=== PATIENT | female | born 1990 | race Caucasian/White ===

== ENCOUNTER → 2016-09-25 | Outpatient (CLI) | payer OTHER ==
--- NOTE | 2016-09-25 17:50 | XR ---
EXAMINATION TYPE: XR knee limited LT DATE OF EXAM: 09/25/2016 COMPARISON: NONE HISTORY: Pain TECHNIQUE: 2 views FINDINGS: I see no fracture nor dislocation. Joint spaces are normal. There is no sign of joint effus ion. IMPRESSION: Normal left knee
== END ==
LOC: RADXRMAIN 17:25
PROVIDERS: ATTEND Nurse Practitioner
DX: M25.562 Pain in left knee (principal)

== ENCOUNTER 2017-10-10 09:42 | Emergency (ER) | payer OTHER, BC ==
[2017-10-10 09:49] VITALS: TEMP 98.5
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
[2017-10-10 11:40] VITALS: BP 111/73; PULSE 65; RESP 16
== END 2017-10-10 11:55 | disposition home or self-care (01) ==
LOC: EC 09:42
DX: S06.0X9A Concussion with loss of consciousness of unspecified duration, initial encounter (principal); S80.02XA Contusion of left knee, initial encounter; S80.01XA Contusion of right knee, initial encounter; H57.12 Ocular pain, left eye; Z79.3 Long term (current) use of hormonal contraceptives; Z79.899 Other long term (current) drug therapy; V43.52XA Car driver injured in collision with other type car in traffic accident, initial encounter; Y92.410 Unspecified street and highway as the place of occurrence of the external cause; Z88.1 Allergy status to other antibiotic agents
CPT/HCPCS: 70450; 70480; 72125; 99284

== ENCOUNTER → 2018-01-05 | Outpatient (CLI) | payer BC ==
--- NOTE | 2018-01-05 11:42 | MR ---
PRE AND POSTCONTRAST ENHANCED MRI OF THE BRAIN: CLINICAL HISTORY: R47.01 Aphasia / R51 Headache CONTRAST: 7.5ml gadavist Multiplanar and multispin-echo imaging of the brain was performed both before and after the administr ation of contrast. The ventricles, basal cisterns and sulci overlying the cerebral convexities are within normal limits. There is no evidence for midline shift or mass effect. Acute intracranial hemorrhage or extra-axial collection is not evident. Nonspecific focal area of increased signal within the deep white matter posterior right shelley radiat a measures 5.4 mm. There are several additional sub-2 mm foci of increased signal within the right ce rebral hemisphere as well as similar tiny nonspecific foci within the left cerebral hemisphere total ing approximately 2 in number. Differential diagnostic possibilities include sequela of chronic migra ine headaches, vasculitis, demyelinating disease and sequela of Lyme's disease to name a few. Following contrast administration, there is no evidence for pathologic enhancement or enhancing mass. The paranasal sinuses and mastoid air cells are well-aerated. IMPRESSION: 1. Nonspecific tiny foci of increased signal with differential diagnostic possibilities given above.
== END ==
LOC: RADMRIMAIN 10:37
PROVIDERS: ATTEND Physical Medicine & Rehabilitation
DX: R51 Headache (principal); R47.01 Aphasia
CPT/HCPCS: 70553; A9585

== ENCOUNTER → 2018-03-01 | Outpatient (CLI) | payer BC, OTHER ==
[2018-03-01 17:01] LABS: Prothrombin Time 10.5 sec (9.0-12.0)
[2018-03-02 03:47] LABS: Cardiolipin Ab IgG Interp NEGATIVE (NEGATIVE); Cardiolipin Ab IgM Interp NEGATIVE (NEGATIVE); Cardiolipin IgA Antibody <0.5 U/mL; Cardiolipin IgM Antibody <0.2 U/mL
[2018-03-04 10:13] LABS: Anti-Thrombin III Antigen 104 % (80 - 120)
[2018-03-04 10:14] LABS: Protein S Antigen 75 % (50 - 140)
[2018-03-04 14:25] LABS: APTT 39 Sec(s) (<43); Dilute Russell Viper Venom 38 Sec(s) (<44)
[2018-03-06 10:10] LABS: Anti-Thrombin III Activity 112 % (79-109); Protein C (Activity) 83 % (71-138)
[2018-03-06 10:53] LABS: Act Protein C Resist Interp NEG; Activated Protein C Resistance 4.87 (1.60-4.90)
== END ==
LOC: LABWHC1 16:22
PROVIDERS: ATTEND Physical Medicine & Rehabilitation
DX: I35.9 Nonrheumatic aortic valve disorder, unspecified (principal); R47.01 Aphasia; R93.1 Abnormal findings on diagnostic imaging of heart and coronary circulation; R51 Headache
CPT/HCPCS: 36415; 81241; 83090; 85210; 85300; 85301; 85303; 85305; 85307; 85610; 85613; 85730; 86147

== ENCOUNTER 2018-08-17 17:15 | Emergency (ER) | payer OTHER ==
[2018-08-17 17:26] VITALS: BP 110/78; PULSE 74; RESP 16; TEMP 99.2
--- NOTE | 2018-08-17 18:17 | ED ---
Female Urogenital HPI - General Chief complaint: Vaginal Bleeding Stated complaint: Cramping-7 wks Time Seen by Provider: 08/17/18 17:35 Source: patient Mode of arrival: ambulatory Limitations: no limitations - History of Present Illness Initial comments: The 7-year-old female presenting today for chief complaint of vaginal bleeding pinky. Patient states she is 7 weeks . She states that yesterday she had lower abdominal cramping midline. She states it felt similar to period cramps. Patient states that today she had heavy vaginal bleeding similar to that of the period. Patient was concerned about miscarriage of present to the emergency department for evaluation. Patient denies any other associated symptoms. She states she is feeling well. Remaining ROS negative, Patient denies any recent fever, chills, shortness of breath, chest pain, back pain, abdominal pain, nausea or vomiting, numbness or tingling, dysuria or hematuria, constipation or diarrhea, headaches or visual changes, or any other complaints. - Related Data Home Medications Medication Instructions Recorded Confirmed Cyanocobalamin (Vitamin B-12) 1,000 mcg PO DAILY 10/10/17 10/10/17 [Vitamin B-12] Lysine [l-Lysine] 500 mg PO DAILY 10/10/17 10/10/17 Multivitamins, Thera [Multivitamin 1 tab PO DAILY 10/10/17 10/10/17 (formulary)] Norethindrone [Brittany] 0.35 mg PO DAILY 10/10/17 10/10/17 Previous Rx's Medication Instructions Recorded Ibuprofen [Motrin] 600 mg PO Q6HR PRN #20 day 10/10/17 Allergies Allergy/AdvReac Type Severity Reaction Status Date / Time sulfamethoxazole Allergy Unknown Verified 08/17/18 17:26 [From Bactrim] trimethoprim [From Bactrim] Allergy Unknown Verified 08/17/18 17:26 Review of Systems ROS Statement: Those systems with pertinent positive or pertinent negative responses have been documented in the HPI. ROS Other: All systems not noted in ROS Statement are negative. Past Medical History Additional Past Medical History / Comment(s): aortic stenosis, mitral and bicuspid valve prolapse History of Any Multi-Drug Resistant Organisms: None Reported Past Surgical History: No Surgical Hx Reported Past Psychological History: No Psychological Hx Reported Smoking Status: Never smoker Past Alcohol Use History: None Reported Past Drug Use History: None Reported General Exam - General Exam Comments Initial Comments: General: The patient is awake and alert, in no distress, and does not appear acutely ill. Eye: +3 mm pupils are equal, round and reactive to light, extra-ocular movements are intact. No nystagmus. There is normal conjunctiva bilaterally. No signs of icterus. Ears, nose, mouth and throat: There are moist mucous membranes and no oral lesions. Neck: The neck is supple, there is no tenderness or JVD. Cardiovascular: There is a regular rate and rhythm. No murmur, rub or gallop is appreciated. Respiratory: Lungs are clear to auscultation, respirations are non-labored, breath sounds are equal. No wheezes, stridor, rales, or rhonchi. Gastrointestinal: Soft, non-distended, non-tender abdomen without masses or organomegaly noted. There is no rebound or guarding present. No CVA tenderness. Bowel sounds are unremarkable. Pelvic: No external lesions, pink and well rugated vaginal mucosa. Moderate amount of dark red blood in the vaginal vault. Os closed. No adnexal or cervical motion tenderness Musculoskeletal: Normal ROM, no tenderness. Strength 5/5. Sensation intact. Pulses equal bilaterally 2+. Neurological: A&O x 3. CN II-XII intact, There are no obvious motor or sensory deficits. Coordination appears grossly intact. Speech is normal. Skin: Skin is warm and dry and no rashes or lesions are noted. Psychiatric: Cooperative, appropriate mood & affect, normal judgment. Limitations: no limitations Course Vital Signs 08/17/18 17:24 Temperature 99.2 F Pulse Rate 74 Respiratory 16 Rate Blood Pressure 110/78 O2 Sat by Pulse 98 Oximetry Medical Decision Making - Medical Decision Making 27-year-old female presents for vaginal bleeding in . Last menstrual period June 30. Patient states she believes she is [address] Bowie. Significant amount of blood in the vaginal vault. No adnexal or cervical motion tenderness. Patient states she has mild abdominal cramping denies any significant pain. Ultrasound revealed no identifiable yolk/sac however there was noted area consistent with possible early vs demise in the the uterus. Noted a cystic mass near right adnexa. I discussed with patient possible of threatened and that we are unable to r/o ectopic at this time given how early the stage in . Patient has low serum Hcg ~ 300. Will trend. Recommended repeat US in 1 week, and immediate return to the emergency department for increasing pain, one sided pain, lightheaded sensation or any other concerning symptoms. Pt A+, no Rhogam indicated at this time. Other return parameters were discussed at length patient verbalized understanding. I discussed the importance of follow-up. I discussed that this may be a miscarriage versus early . Patient states she is ready for discharge. Did discuss the case attended by Dr. Viramontes who is agreeable to plan discharge. - Lab Data Result diagrams: 08/17/18 18:20 08/17/18 18:20 Lab Results 08/17/18 08/17/18 08/17/18 Range/Units 18:20 18:20 18:20 WBC 9.5 (3.8-10.6) k/uL RBC 4.72 (3.80-5.40) m/uL Hgb 14.2 (11.4-16.0) gm/dL Hct 42.2 (34.0-46.0) % MCV 89.4 (80.0-100.0) fL MCH 30.0 (25.0-35.0) pg MCHC 33.6 (31.0-37.0) g/dL RDW 12.2 (11.5-15.5) % Plt Count 182 (150-450) k/uL Neutrophils % 78 % Lymphocytes % 15 % Monocytes % 6 % Eosinophils % 1 % Basophils % 0 % Neutrophils # 7.4 (1.3-7.7) k/uL Lymphocytes # 1.4 (1.0-4.8) k/uL Monocytes # 0.5 (0-1.0) k/uL Eosinophils # 0.1 (0-0.7) k/uL Basophils # 0.0 (0-0.2) k/uL Sodium (137-145) mmol/L Potassium (3.5-5.1) mmol/L Chloride (98-107) mmol/L Carbon Dioxide (22-30) mmol/L Anion Gap mmol/L BUN (7-17) mg/dL Creatinine (0.52-1.04) mg/dL Est GFR (CKD-EPI)AfAm (>60 ml/min/1.73 sqM) Est GFR (CKD-EPI)NonAf (>60 ml/min/1.73 sqM) Glucose (74-99) mg/dL Calcium (8.4-10.2) mg/dL Total Bilirubin (0.2-1.3) mg/dL AST (14-36) U/L ALT (9-52) U/L Alkaline Phosphatase (38-126) U/L Total Protein (6.3-8.2) g/dL Albumin (3.5-5.0) g/dL HCG, Quant mIU/mL Urine Color Light Red Urine Appearance Cloudy H (Clear) Urine pH 5.5 (5.0-8.0) Ur Specific Doran 1.033 (1.001-1.035) Urine Protein 1+ H (Negative) Urine Glucose (UA) Negative (Negative) Urine Ketones Negative (Negative) Urine Blood Moderate H (Negative) Urine Nitrite Negative (Negative) Urine Bilirubin Negative (Negative) Urine Urobilinogen <2.0 (<2.0) mg/dL Ur Leukocyte Esterase Small H (Negative) Urine RBC >182 H (0-5) /hpf Urine WBC 12 H (0-5) /hpf Ur Squamous Epith Cells 1 (0-4) /hpf Urine Mucus Occasional H (None) /hpf Blood Type A Positive Blood Type Confirm Blood Type Recheck CABO Indicated Antibody Screen NEGATIVE Spec Expiration Date 08/20/2018 - 231908/17/18 08/17/18 Range/Units 18:20 18:26 WBC (3.8-10.6) k/uL RBC (3.80-5.40) m/uL Hgb (11.4-16.0) gm/dL Hct (34.0-46.0) % MCV (80.0-100.0) fL MCH (25.0-35.0) pg MCHC (31.0-37.0) g/dL RDW (11.5-15.5) % Plt Count (150-450) k/uL Neutrophils % % Lymphocytes % % Monocytes % % Eosinophils % % Basophils % % Neutrophils # (1.3-7.7) k/uL Lymphocytes # (1.0-4.8) k/uL Monocytes # (0-1.0) k/uL Eosinophils # (0-0.7) k/uL Basophils # (0-0.2) k/uL Sodium 140 (137-145) mmol/L Potassium 4.1 (3.5-5.1) mmol/L Chloride 109 H (98-107) mmol/L Carbon Dioxide 22 (22-30) mmol/L Anion Gap 9 mmol/L BUN 10 (7-17) mg/dL Creatinine 0.80 (0.52-1.04) mg/dL Est GFR (CKD-EPI)AfAm >90 (>60 ml/min/1.73 sqM) Est GFR (CKD-EPI)NonAf >90 (>60 ml/min/1.73 sqM) Glucose 82 (74-99) mg/dL Calcium 9.7 (8.4-10.2) mg/dL Total Bilirubin 0.9 (0.2-1.3) mg/dL AST 27 (14-36) U/L ALT 22 (9-52) U/L Alkaline Phosphatase 36 L (38-126) U/L Total Protein 7.1 (6.3-8.2) g/dL Albumin 4.6 (3.5-5.0) g/dL HCG, Quant 343.0 mIU/mL Urine Color Urine Appearance (Clear) Urine pH (5.0-8.0) Ur Specific Doran (1.001-1.035) Urine Protein (Negative) Urine Glucose (UA) (Negative) Urine Ketones (Negative) Urine Blood (Negative) Urine Nitrite (Negative) Urine Bilirubin (Negative) Urine Urobilinogen (<2.0) mg/dL Ur Leukocyte Esterase (Negative) Urine RBC (0-5) /hpf Urine WBC (0-5) /hpf Ur Squamous Epith Cells (0-4) /hpf Urine Mucus (None) /hpf Blood Type Blood Type Confirm A Positive Blood Type Recheck Antibody Screen Spec Expiration Date Disposition Clinical Impression: Threatened miscarriage Disposition: HOME SELF-CARE Condition: Good Instructions (If sedation given, give patient instructions): Threatened Miscarriage (ED) Additional Instructions: Please use medication as discussed. Please follow-up with ALLAN oliveira next week, please repeat beat HCG as discussed repeated on 08/19/2017. He was immediately return to emergency department for increasing pain lightheadedness or any other concerning signs or symptoms. Please return to emergency room if t he symptoms increase or worsen or for any other concerns. Is patient prescribed a controlled substance at d/c from ED?: No Referrals: Gabbie Hummel MD [Primary Care Provider] - 1-2 days Time of Disposition: 20:05
[2018-08-17 18:37] LABS: Basophils % (A) 0 %; Eosinophils # (A) 0.1 k/uL (0-0.7); Eosinophils % (A) 1 %; HCT 42.2 % (34.0-46.0); HGB 14.2 gm/dL (11.4-16.0); Lymphocytes # (A) 1.4 k/uL (1.0-4.8); Lymphocytes % (A) 15 %; MCHC 33.6 g/dL (31.0-37.0); MCV 89.4 fL (80.0-100.0); Mean Platelet Volume 7.4; Monocytes # (A) 0.5 k/uL (0-1.0); Monocytes % (A) 6 %; Neutrophils # (A) 7.4 k/uL (1.3-7.7); Neutrophils % (A) 78 %; Platelet Count 182 k/uL (150-450); RBC 4.72 m/uL (3.80-5.40); RDW 12.2 % (11.5-15.5); WBC 9.5 k/uL (3.8-10.6)
[2018-08-17 18:46] LABS: Appearance,Urine Cloudy (Clear); Bilirubin,Urine Negative (Negative); Blood,Urine Moderate (Negative); Color,Urine Light Red; Glucose,Urine (UA) Negative (Negative); Ketones,Urine Negative (Negative); Leukocyte Esterase,Urine Small (Negative); Mucus,Urine Occasional /hpf; Nitrite,Urine Negative (Negative); PH, Urine 5.5 (5.0-8.0); Protein,Urine 1+ (Negative); RBC,Urine >182 /hpf (0-5); Specific Gravity,Urine 1.033 (1.001-1.035); Squamous Epithelial Cell,Urine 1 /hpf (0-4); Urobilinogen,Urine <2.0 mg/dL (<2.0); WBC,Urine 12 /hpf (0-5)
[2018-08-17 18:47] LABS: ALT 22 U/L (9-52); AST 27 U/L (14-36); Albumin 4.6 g/dL (3.5-5.0); Alkaline Phosphatase 36 U/L (38-126); Anion Gap 9 mmol/L; Blood Urea Nitrogen 10 mg/dL (7-17); Calcium 9.7 mg/dL (8.4-10.2); Carbon Dioxide 22 mmol/L (22-30); Chloride 109 mmol/L (98-107); Glucose 82 mg/dL (74-99); Potassium 4.1 mmol/L (3.5-5.1); Sodium 140 mmol/L (137-145); Total Bilirubin 0.9 mg/dL (0.2-1.3); Total Protein 7.1 g/dL (6.3-8.2)
--- NOTE | 2018-08-17 19:51 | US ---
EXAMINATION TYPE: Transabdominal DATE OF EXAM: 08/17/2018 7:40 PM COMPARISON: NONE CLINICAL HISTORY: bleeding. Cramping yesterday. Bleeding started today. No previous ultrasound with this . EXAM PERFORMED: Transvaginal (TV) and Transabdominal (TA) EXAM MEASUREMENTS: GESTATIONAL AGE / DATING Dates by LMP: (6 weeks/6 days) EDC: 04/06/2019 Dates by Current Scan for: No IUP seen at this time MATERNAL ANATOMY Uterus: 7.4 x 5.3 x 4.2 cm Right Ovary: 4.5 x 3.6 x 3.2 cm Left Ovary: 2.7 x 4.9 x 2.1 cm Post CDS / Adnexa: no free fluid Presence of free fluid: no Presence of corpus luteal cyst: Right ovarian cystic lesion - 3.3 x 3.2 x 2.8 cm Presence of subchorionic bleed: no GESTATION / SURVEY MSD: Cystic appearing lesion seen in endometrium, possible GS= x 0.5 x 0.4 x 0.2 cm IUP: No IUP seen at this time Date of LMP: 06/30/2018, G1 Beta HcG (if available): 343 Possible GS seen, too early to determine dates. No YS or CRL visualized. Cystic appearing lesion se en in right adnexa between right ovary and uterus = 0.5 x 0.6 x 0.6 cm. Fluid seen in cervical canal . Endometrium appears thickened = 1.4 cm IMPRESSION: There is thickened endometrium consistent with a developing gestational sac. Endometrium measures 14 mm. There is 2 mm fluid collection. No yolk sac seen. Simple right ovarian cyst. No solid adnexal mas s.
== END 2018-08-17 20:40 | disposition home or self-care (01) ==
LOC: EC 17:15
DX: O20.0 Threatened abortion (principal); O34.81 Maternal care for other abnormalities of pelvic organs, first trimester; N83.201 Unspecified ovarian cyst, right side; Z3A.01 Less than 8 weeks gestation of pregnancy; Z88.1 Allergy status to other antibiotic agents; Z88.2 Allergy status to sulfonamides
CPT/HCPCS: 36415; 76801; 76817; 80053; 81001; 84702; 85025; 86850; 86900; 86901; 99284

== ENCOUNTER → 2018-08-19 | Outpatient (CLI) | payer OTHER | END | disposition home or self-care (01) | LOC: LABWHC1 11:37 | PROVIDERS: ATTEND Physician Assistant Medical | DX: O20.0 Threatened abortion (principal); Z3A.00 Weeks of gestation of pregnancy not specified | CPT/HCPCS: 36415; 84702 ==

== ENCOUNTER → 2019-08-25 | Outpatient (CLI) | payer OTHER ==
[2019-08-25 14:48] LABS: Basophils % (A) 0 %; Eosinophils # (A) 0.1 k/uL (0-0.7); Eosinophils % (A) 2 %; HCT 44.8 % (34.0-46.0); HGB 14.7 gm/dL (11.4-16.0); Lymphocytes # (A) 1.6 k/uL (1.0-4.8); Lymphocytes % (A) 25 %; MCH 28.2 pg (25.0-35.0); MCHC 32.9 g/dL (31.0-37.0); MCV 85.7 fL (80.0-100.0); Mean Platelet Volume 8.2; Monocytes # (A) 0.5 k/uL (0-1.0); Monocytes % (A) 8 %; Neutrophils % (A) 62 %; Platelet Count 197 k/uL (150-450); RBC 5.24 m/uL (3.80-5.40); RDW 14.1 % (11.5-15.5); WBC 6.4 k/uL (3.8-10.6)
[2019-08-25 20:20] LABS: African American GFR (CKD) 117.9 (60.0-200.0); Albumin 4.9 g/dL (3.80-4.90); Albumin/Globulin Ratio 2.45 (1.60-3.17); Anion Gap 9.2 mmol/L (4.00-12.00); Calcium 10.2 mg/dL (8.7-10.3); Carbon Dioxide 26.8 mmol/L (21.6-31.8); Chol/HDL Ratio 2.48; LDL Cholesterol,Calculated 81.8 mg/dL (0.0-131.0); Non-African American GFR(CKD) 101.8 (60.0-200.0); Potassium 3.8 mmol/L (3.5-5.5); Total Bilirubin 0.5 mg/dL (0.2-1.2); Total Protein 6.9 g/dL (6.2-8.2); VLDL Calculation 10.2 mg/dL (5.00-40.00)
[2019-08-25 20:37] LABS: Ferritin 8.2 ng/mL (10.0-291.0)
[2019-08-25 20:53] LABS: Hemoglobin A1C 4.8 % (4.0-6.0)
== END | disposition home or self-care (01) ==
LOC: LABWHC1 14:04
PROVIDERS: ATTEND Nurse Practitioner
DX: Z00.00 Encounter for general adult medical examination without abnormal findings (principal); I35.9 Nonrheumatic aortic valve disorder, unspecified; K21.9 Gastro-esophageal reflux disease without esophagitis; D50.9 Iron deficiency anemia, unspecified
CPT/HCPCS: 36415; 80053; 80061; 82728; 83036; 84443; 85025

== ENCOUNTER → 2019-11-08 | Outpatient (CLI) | payer OTHER ==
--- NOTE | 2019-11-09 17:02 | MR ---
EXAMINATION TYPE: MR brain wo/w con DATE OF EXAM: 11/08/2019 COMPARISON: 01/05/2018 HISTORY: F/u TIA 2018 CONTRAST: Performed utilizing 7.5 mL intravenous Gadavist gadolinium contrast. TECHNIQUE: Multiplanar, multiecho imaging on a 3.0 Bhavna magnet is performed through the brain. Stud y is performed within 24 hours of arrival to the hospital. The craniovertebral junction is normal. The pituitary is normal. Diffusion-weighted imaging is performed. No abnormal hyperintensity is present to suggest an acute i ntracranial infarct or acute ischemic change. There are couple of punctate subcortical white matter changes in the left centrum semiovale, within t he periventricular white matter adjacent to the occipital horns of the lateral ventricles within subc ortical white matter of the frontal lobes bilaterally. Punctate area is within the left basal ganglio n. There is a focus of uptake within the posterior lateral right cerebellum. Findings are nonspecific and can be related to microvascular ischemic change. This is greater than expected for the age. Cons ider possible sclerosis within the differential. Migraine headaches can have this appearance. Reference lesions 1. largest on the right cerebellum 0.8 x 0.4 x 0.9 centimeters. Series 501 image 7, series 601 image 106. 2. Largest left frontal region 0.2 x 0.3 cm left frontal lobe subcortical white matter. Series 501 im age 20. Ventricles and sulci are appropriate for the patient age. No abnormal enhancement is evident. IMPRESSIONS: 1. Scattered punctate hyperintensities greater than expected for the patient age. Consider multiple s clerosis within the differential. Microvascular ischemic change could be considered. Lyme disease and migraine headaches could be considered.
== END | disposition home or self-care (01) ==
LOC: RADMRIMAIN 13:52
PROVIDERS: ATTEND Psychiatry & Neurology Neurology
DX: G45.9 Transient cerebral ischemic attack, unspecified (principal); G51.9 Disorder of facial nerve, unspecified; Z88.2 Allergy status to sulfonamides
CPT/HCPCS: 70553; A9585

== ENCOUNTER → 2023-04-16 | Outpatient (CLI) | payer BC, OTHER ==
[2023-04-16 20:39] LABS: BUN/Creat Ratio 9.78 Ratio (12.00-20.00); Blood Urea Nitrogen 8.8 mg/dL (9.0-27.0); Calcium 9.6 mg/dL (8.7-10.3); Carbon Dioxide 24.7 mmol/L (21.6-31.8); Chloride 105 mmol/L (96-109); Glucose 87 mg/dL (70-110); Potassium 4.1 mmol/L (3.5-5.5); Sodium 140 mmol/L (135-145)
== END | disposition home or self-care (01) ==
LOC: LABWHC1 12:59
PROVIDERS: ATTEND Family Medicine
DX: N28.9 Disorder of kidney and ureter, unspecified (principal); E55.9 Vitamin D deficiency, unspecified; R89.9 Unspecified abnormal finding in specimens from other organs, systems and tissues
CPT/HCPCS: 36415; 80048; 82306

== ENCOUNTER → 2023-11-28 | Outpatient (CLI) | payer BC, OTHER ==
--- NOTE | 2023-11-28 18:10 | MR ---
EXAMINATION TYPE: MR brain wo/w con DATE OF EXAM: 11/28/2023 COMPARISON: 11/08/2019 HISTORY: Blurred vision, hx TIA. CONTRAST: Performed utilizing 8 mL intravenous Gadavist gadolinium contrast. TECHNIQUE: Multiplanar, multiecho imaging on a 3.0 Bhavna magnet is performed through the brain. Stud y is performed within 24 hours of arrival to the hospital. The craniovertebral junction is normal. The pituitary is normal. Diffusion-weighted imaging is performed. No abnormal hyperintensity is present to suggest an acute i ntracranial infarct or acute ischemic change. There are a few minimal scattered punctate areas of hyperintensity on T2 and Inversion Recovery weigh dallin sequences and subcortical white matter which are non-specific but can be related to microvascular ischemic changes. Differential diagnosis includes multiple sclerosis. There is a new white matter ch julian in the left shelley radiata measuring 0.9 x 0.3 cm. Series 601 image 19. This area is not hyperin tense on can be related to multiple sclerosis or other etiologies matter change. Additional subcortic al white matter change frontal lobe, series 601 image 15 currently measures 0.3 x 0.4 cm. Previous me asurement 0.2 x 0.3 cm. Ventricles and sulci are appropriate for the patient age. No abnormal enhancement is evident. IMPRESSION: 1. Mild scattered deep white matter changes which are nonspecific. A nonacute new lesion in the left coronary radiata is present. Consider multiple gross. [facility], , 11/28/2023 6:08 PM
== END | disposition home or self-care (01) ==
LOC: RADMRIMAIN 16:32
PROVIDERS: ATTEND Internal Medicine
DX: H53.2 Diplopia
CPT/HCPCS: 70553

== ENCOUNTER → 2024-05-23 | Outpatient (CLI) | payer BC ==
--- NOTE | 2024-05-23 18:29 | MR ---
EXAMINATION TYPE: MR brain/cspine wo/w DATE OF EXAM: 05/23/2024 5:57 PM COMPARISON: MRI brain 11/28/2023, 11/08/2019, 01/05/2019, CT brain C-spine 10/10/2017 CLINICAL INDICATION: Female, 33 years old with history of G35 MULTIPLE SCLEROSIS, Previous Lesions on pt's brain - MS HX - Neck pain and blurred vision IV Contrast: 8.5ml cc Gadobutrol (None if empty) TECHNIQUE: Multiplanar, multisequence images of the brain and cervical spine is performed without and with IV co ntrast, utilizing 8.5ml mL intravenous Gadobutrol . MS protocol. FINDINGS: The roth-white junctions, ventricular system, basal cisterns appear unremarkable. Age-appropriate cer ebral parenchymal volume. Diffusion-weighted imaging shows no evidence of restricted diffusion to sug gest acute/subacute infarct. Intracranial arterial flow voids are maintained. Midline structures show no abnormality. Few stable T2/FLAIR hyperintense and T1 hypointense supratentorial subcortical white matter foci. Largest within the left parietal lobe measures up to 5 mm (series 1702, image 23). Larg est within the posterior right frontal lobe measures up to 3 mm (series 1702, image 23). No definitiv e new foci. The susceptibility weighted images demonstrate several scattered punctate foci of bloomin g artifact within both cerebral hemispheres likely related to prior hemosiderin deposition. Stable fr om prior exam. After administration of gadolinium, no abnormal enhancement is seen. The bone marrow signal is within normal limits. The globes are unremarkable. Anterior right maxillar y sinus 1.3 cm mucous retention cyst. Alignment: The cervical vertebral bodies have preserved heights. Alignment is within normal limits gi ludmila patient positioning. Bones: Bone signal is within normal limits. Cord: The spinal cord is unremarkable with regards to their signal intensity and morphology. No abnor mal enhancement. Discs: Intervertebral disc signal is maintained. C2-C3: No significant disc pathology. The spinal canal is patent. No neural foraminal stenosis. C3-C4: No significant disc pathology. The spinal canal is patent. No neural foraminal stenosis. C4-C5: No significant disc pathology. The spinal canal is patent. No neural foraminal stenosis. C5-C6: Broad-based disc bulge with mild effacement of the anterior thecal sac. No significant central canal stenosis No neural foraminal stenosis. C6-C7: No significant disc pathology. The spinal canal is patent. No neural foraminal stenosis. C7-T1: No significant disc pathology. The spinal canal is patent. No neural foraminal stenosis. Other: None. IMPRESSION: 1. No evidence of intracranial mass, acute/subacute infarct, or abnormal enhancement. 2. Few stable supratentorial nonspecific white matter changes likely reported to report MS. No demetria rning spinal cord lesions within the cervical spine. No contrast enhancement to suggest active demyel ination. [facility], , 05/23/2024 6:27 PM
== END | disposition home or self-care (01) ==
LOC: RADMRIMAIN 16:36
PROVIDERS: ATTEND Physical Medicine & Rehabilitation
DX: G35 Multiple sclerosis (principal); R90.82 White matter disease, unspecified
CPT/HCPCS: 70553; 72156; A9585